=== PATIENT | male | born 1930 | race Caucasian/White ===

== ENCOUNTER → 2016-08-15 | Outpatient (CLI) | payer MEDICARE ==
[~2016-08-15] MED LIST: ASPIRIN; ASPIRIN PO; ASPIRIN81 MG PO; AUGMENTIN PO; AVANDIA; AVANDIA PO; CENTRUM SILVER PO; CIPRO PO; COUMADIN; COUMADIN PO; COZAAR; COZAAR PO; GABAPENTIN400 MG PO; GLUCOTROL PO; GLUCOTROL XL; HYDRALAZINE HCL25 MG PO; IRON TABLETS1 TAB PO; KEPPRA XR750 MG PO; LASIX; LASIX PO; LASIX80 MG PO; LIPITOR PO; LOPID600 MG; LOPID600 MG PO; LOPRESSOR PO; LORTAB 5/500 TA1 TA1; LORTAB 5/500 TA1 TA1 PO; LORTAB 7.5-5001 TAB PO; LOSARTAN POTASS50 MG PO; LOVENOX SUBQ; METRONIDAZOLE PO; NEURONTIN300 MG PO; NORVASC10 MG PO; SIMVASTATIN5 MG PO; VICODIN 5/1 TAB 5/50 PO; VICODIN 5/500 T1 TAB PO; VICODIN PO; ZOCOR; ZOCOR PO
[2016-08-15 12:07] LABS: BASOPHIL% 0.5 % (0-2.5); DIFF IND NO; EOSINOPHIL# 0.1 X10e3 (0-0.7); EOSINOPHIL% 2.2 % (0.0-7.0); HEMATOCRIT 34.6 % (38.0-50.0); HEMOGLOBIN 11.4 gm/dL (13.0-16.0); LYMPHOCYTE% 22.9 % (17.0-45.0); MEAN CELL VOLUME 92.5 FL (83-96); MEAN CORPUSCULAR HEMOGLOBIN 30.4 PG (28-34); MEAN CORPUSCULAR HGB CONC 32.9 g/dL (30-36); MEAN PLATELET VOLUME 7.7 FL (6.5-11.5); MONOCYTE# 0.4 X10e3 (0-1.0); MONOCYTE% 9.3 % (3.0-12.0); NEUTROPHIL# 2.9 X10e3 (1.5-7.1); NEUTROPHIL% 65.1 % (40-75); PLATELET COUNT 136 X10e3 (140-420); RED BLOOD COUNT 3.74 X10e (3.90-5.60); RED CELL DISTRIBUTION WIDTH 13.1 % (11.0-15.5); WHITE BLOOD COUNT 4.5 X10e3 (4.0-10.5)
[2016-08-15 12:22] LABS: URINE APPEARANCE CLEAR; URINE BILIRUBIN NEG (NEG); URINE BLOOD NEG (NEG); URINE COLOR YELLOW; URINE GLUCOSE NEG (NORM); URINE KETONE NEG (NEG); URINE LEUKOCYTE ESTERASE NEG (NEG); URINE NITRATE NEG (NEG); URINE PH 5.5 (5-8); URINE PROTEIN 2+ (NEG); URINE UROBILINOGEN 0.2 MG/DL (NORM)
[2016-08-15 12:29] LABS: BUN/CREATININE RATIO 26.8; CALCIUM SERUM 8.2 mg/dL (8.4-10.2); CREATININE SERUM 2.5 mg/dL (0.6-1.4); GLOM FILT RATE Estimated 22.6 mL/min (>60); POTASSIUM 3.5 mmol/L (3.5-5.1)
[2016-08-15 13:01] LABS: MICRO INDICATED? YES
[2016-08-15 14:04] LABS: URINE BACTERIA NEG (NEG); URINE RBC 0-2 /[HPF] (0-2); URINE SQUAMOUS EPITHELIAL CELL OCCAS /[HPF]; URINE WBC 0-2 /[HPF] (0-5)
== END | disposition home or self-care (01) ==
LOC: SLAB 11:48
PROVIDERS: Internal Medicine Nephrology
DX: N18.3 Chronic kidney disease, stage 3 (moderate) (principal)
CPT/HCPCS: 36415; 80048; 81003; 85025

== ENCOUNTER → 2016-08-30 | Outpatient (CLI) | payer MEDICARE ==
[2016-08-30 11:52] LABS: BUN/CREATININE RATIO 30.4; CALCIUM SERUM 8.3 mg/dL (8.4-10.2); CREATININE SERUM 2.5 mg/dL (0.6-1.4); GLOM FILT RATE Estimated 22.6 mL/min (>60); POTASSIUM 3.6 mmol/L (3.5-5.1)
== END | disposition home or self-care (01) ==
LOC: SLAB 11:12
PROVIDERS: Internal Medicine Nephrology
DX: N18.4 Chronic kidney disease, stage 4 (severe) (principal)
CPT/HCPCS: 36415; 80048